=== PATIENT | male | born 1950 | race Caucasian/White ===

== ENCOUNTER → 2021-02-08 | Outpatient (CLI) | payer MEDICARE, OTHER | LOC: EXRD 10:55 | DX: C02.0 Malignant neoplasm of dorsal surface of tongue (principal) | CPT/HCPCS: 71046 ==

== ENCOUNTER 2021-11-22 13:44 | Emergency (ER) | payer MEDICARE, OTHER | END 2021-11-22 15:45 | disposition home or self-care (01) | LOC: ER1 13:44 | DX: I10 Essential (primary) hypertension (principal) | CPT/HCPCS: 93005; 99283 ==